=== PATIENT | female | born 1970 | race Caucasian/White ===

== ENCOUNTER 2019-06-18 15:23 | Emergency (ER) | payer SELFPAY ==
--- NOTE | 2019-06-18 18:37 | ED ---
Lower Extremity - HPI Summary HPI Summary: Patient complains of feeling a pop in right knee one week ago while walking. History of patellar dislocation, but states she did not dislocate patella this time. Patient has had intermittent swelling since feeling pop 1 week ago. Swelling is uncomfortable, however denies any other pain. Knee feels stable per patient. Patient wearing her own brace. Denies any pain, injury or symptoms. - History of Current Complaint Chief Complaint: EDExtremityLower Stated Complaint: RT KNEE SWOLLEN PER PT Time Seen by Provider: 06/18/19 18:35 Hx Obtained From: Patient Mechanism Of Injury: Unknown Severity Initially: Moderate Severity Currently: Moderate Pain Intensity: 6 Pain Scale Used: 0-10 Numeric Timing: Intermittent, Lasting Hours Location: Is Discrete @ Character Of Pain: Aching Associated Signs And Symptoms: Positive: Swelling Aggravating Factor(s): Standing Alleviating Factor(s): Rest, Elevation, Ice, OTC Meds Able to Bear Weight: Yes - Allergies/Home Medications Allergies/Adverse Reactions: Allergies Allergy/AdvReac Type Severity Reaction Status Date / Time diphenhydramine Allergy Anxiety Verified 06/18/19 15:28 Home Medications: Home Medications Ascorbic Acid TAB* [Vitamin C TAB*] 1,000 mg PO DAILY 05/22/17 [History Confirmed 05/22/17] Aspirin EC TAB* [Ecotrin EC Low Dose 81 MG*] 81 mg PO DAILY 05/22/17 [History Confirmed 05/22/17] Cholecalciferol CAP/TAB(NF) [Vitamin D3 CAP/TAB (NF)] 5,000 unit PO DAILY [History Confirmed 05/22/17] Multivitamins/Minerals TAB* [Theragran/minerals TAB*] 1 tab PO DAILY 05/22/17 [ History Confirmed 05/22/17] Potassium Chlor TAB* [Klor Con ER TAB 10 MEQ*] 10 meq PO DAILY #4 tab.er [Rx] PMH/Surg Hx/FS Hx/Imm Hx Endocrine/Hematology History: Denies: Hx Anticoagulant Therapy Cardiovascular History: Denies: Hx Hypertension History: Denies: Hx Dialysis Musculoskeletal History: Reports: Other Musculoskeletal History - Patellar dislocation x 6 Sensory History: Denies: Hx Eye Prosthesis Opthamlomology History: Denies: Hx Legally Blind EENT History: Denies: Hx Deafness Neurological History: Denies: Hx Dementia - Immunization History Date of Tetanus Vaccine: 11/2012 Infectious Disease History: No Infectious Disease History: Denies: Traveled Outside the [place] in Last 30 Days - Family History Known Family History: Positive: Cardiac Disease - Social History Alcohol Use: Rare Hx Substance Use: No Substance Use Type: Reports: None Hx Tobacco Use: Yes Smoking Status (MU): Light Every Day Tobacco Smoker Review of Systems Constitutional: Negative Eyes: Negative ENT: Negative Cardiovascular: Negative Respiratory: Negative Positive: Abdominal Pain Genitourinary: Negative Musculoskeletal: Other Skin: Negative Neurological/Mental Status: Negative Psychological: Normal All Other Systems Reviewed And Are Negative: Yes Physical Exam - Summary Physical Exam Summary: No erythema, extra warmth, deformity noted to right knee. 40 range of motion with some pain. Moderate swelling along the lateral aspect of right knee. Tenderness to palpation in same area. PMS intact distally. Triage Information Reviewed: Yes Vital Signs On Initial Exam: Initial Vitals Temp Pulse Resp BP Pulse Ox 98.2 F 91 16 146/89 100 06/18/19 15:25 06/18/19 15:25 06/18/19 15:25 06/18/19 15:25 06/18/19 15:25 Vital Signs Reviewed: Yes Appearance: Positive: Well-Appearing Skin: Positive: Warm Head/Face: Positive: Normal Head/Face Inspection Eyes: Positive: Normal Neck: Positive: Supple Respiratory/Lung Sounds: Positive: Clear to Auscultation Cardiovascular: Positive: Normal Abdomen Description: Positive: Nontender Musculoskeletal: Positive: Normal Neurological: Positive: Normal Psychiatric: Positive: Normal AVPU Assessment: Alert - [place] Coma Scale Best Eye Response: 4 - Spontaneous Best Motor Response: 6 - Obeys Commands Best Verbal Response: 5 - Oriented Coma Scale Total: 15 Procedures - Sedation Patient Received Moderate/Deep Sedation with Procedure: No Diagnostics - Vital Signs Vital Signs Temp Pulse Resp BP Pulse Ox 06/18/19 18:05 99.3 F 68 16 133/75 98 06/18/19 15:25 98.2 F 91 16 146/89 100 - Laboratory Lab Statement: Any lab studies that have been ordered have been reviewed, and results considered in the medical decision making process. Lower Extremity Course/Dx - Course Course Of Treatment: Patient complains of feeling a pop in right knee one week ago while walking. History of patellar dislocation, but states she did not dislocate patella this time. Patient has had intermittent swelling since feeling pop 1 week ago. Swelling is uncomfortable, however denies any other pain. Knee feels stable per patient. Patient wearing her own brace. Denies any pain, injury or symptoms. Vital signs within normal limits. X-ray negative for fracture. Follow-up with orthopedics. . - Diagnoses Provider Diagnoses: Swelling of right knee joint Discharge ED - Sign-Out/Discharge Documenting (check all that apply): Patient Departure - Discharge Plan Condition: Stable Disposition: HOME Patient Education Materials: Swollen Knee Joint (ED) Referrals: No Primary Care Phys,NOPCP [Primary Care Provider] - Matthew Hoyt MD [Medical Doctor] - Additional Instructions: Ice right knee for 15 minutes at a time. Take ibuprofen 600 mg every 6 hours. Rest. Elevation. Wear brace. Follow-up with clinic of orthopedics Dr. Greenwood for further evaluation. Return to the ED for any new or worsening symptoms. - Billing Disposition and Condition Condition: STABLE Disposition: Home
[2019-06-18 19:14] VITALS: BP 141/68
== END 2019-06-18 19:13 | disposition home or self-care (01) ==
LOC: ED 15:23
DX: M25.461 Effusion, right knee (principal); R10.9 Unspecified abdominal pain; F17.210 Nicotine dependence, cigarettes, uncomplicated; Z79.82 Long term (current) use of aspirin; Z88.8 Allergy status to other drugs, medicaments and biological substances
CPT/HCPCS: 99282